=== PATIENT | female | born 1990 | race Hispanic/Latino ===

== ENCOUNTER → 2017-08-13 | Outpatient (CLI) | payer BC ==
[~2017-08-13] MED LIST: IOPAMIDOL 370 MG/ML 200 ML INFUS..BTL INJ ONE; SODIUM CHLORIDE 0.9% 250ML 0 ML ONE; SODIUM CHLORIDE 0.9% 250ML 250 ML ONE; SODIUM CHLORIDE 0.9% 50ML 50 ML ONE
--- NOTE | 2017-08-13 11:05 | Diagnostic Imaging Report ---
PROCEDURE: CT ABDOMEN \T\ PELVIS W/WO CONTRAST TECHNIQUE: The abdomen and pelvis were scanned utilizing a multidetector helical scanner from the diaphragm to the lesser trochanter before and after the IV administration of 150 cc of Isovue 370. Imaging was performed in the prone position per CT urogram protocol. Coronal and sagittal multiplanar reformations were obtained. COMPARISON: None. INDICATIONS: HEMATURIA FINDINGS: LOWER THORAX: Normal. HEPATOBILIARY: No focal hepatic lesions. No biliary ductal dilatation. SPLEEN: No splenomegaly. PANCREAS: No focal masses or ductal dilatation. ADRENALS: No adrenal nodules. KIDNEYS/URETERS: The 2-3 mm nonobstructing calculus in the interpolar left kidney seen on series 3 image 70. Punctate nonobstructing left lower pole renal calculus seen on series 3 image 89. No hydronephrosis. No additional renal, ureteral, or bladder calculi. No renal mass lesion or hydronephrosis. Excretory phase images show no filling defects within the upper collecting systems, ureters, or urinary bladder. The distal 4-5 cm of left ureter are not opacified with contrast, which likely relates to peristalsis. PELVIC ORGANS/BLADDER: The urinary bladder is unremarkable. The uterus is anteflexed and appears normal. Small left ovarian cyst versus dominant follicle. No right adnexal mass. PERITONEUM / RETROPERITONEUM: No free air or fluid. LYMPH NODES: No pelvic sidewall, retroperitoneal, or mesenteric lymphadenopathy. VESSELS: The abdominal aorta, major branch vessels, and iliac arterial systems are well-visualized and patent. Portal vein, splenic vein, and central superior mesenteric vein are patent. GI TRACT: The large bowel shows no evidence of distention or wall thickening. The rectum is collapsed likely reflective of peristalsis. The appendix is normal. No small bowel dilatation to suggest obstruction. BONES AND SOFT TISSUES: No focal soft tissue abnormalities. No osseous destructive lesions. IMPRESSION: Nonobstructing left renal calculi. Otherwise unremarkable CT urogram. Dictated by: Yaya Muller M.D. on 08/13/2017 at 11:05 Electronically approved by: Yaya Muller M.D. on 08/13/2017 at 11:05
== END ==
LOC: CT 08-06 17:40
PROVIDERS: ATTEND Urology
DX: N20.0 Calculus of kidney (principal); R31.9 Hematuria, unspecified
CPT/HCPCS: 74178; 81025 ×2; J7050; Q9967

== ENCOUNTER → 2017-08-29 | Outpatient (CLI) | payer BC ==
--- NOTE | 2017-08-29 22:51 | Diagnostic Imaging Report ---
EXAM: ABDOMEN-1VIEW (KUB), history of renal calculi INDICATION: CT of the abdomen and pelvis with and without IV contrast August 13, 2017 COMPARISON: CT urogram August 13, 2017 FINDINGS: LINES/TUBES: None BOWEL PATTERN: No evidence for obstruction. SOFT TISSUES: The renal shadows are largely obscured by bowel content and air. No calcifications are seen over the renal shadows and expected course of the ureters or bladder. LUNG BASES: Not included BONES: No acute findings. IMPRESSION: The renal stones seen in the left kidney on prior CT are not visualized on this KUB. The renal shadows are largely obscured by bowel. Signed by: Dr. Stefanie Stephen M.D. on 08/29/2017 10:47 PM
== END ==
LOC: RAD 17:28
PROVIDERS: ATTEND Urology
DX: N20.0 Calculus of kidney (principal)
CPT/HCPCS: 74018; 81025

== ENCOUNTER → 2017-10-15 | Day surgery (SDC) | payer BC ==
[2017-10-14 15:46] LABS: BASOPHILS % 0.3 % (0.0-1.0); EOSINOPHILS # (AUTO) 0.2 (0.0-0.4); EOSINOPHILS % 1.6 % (0.0-6.0); HEMATOCRIT 40.3 % (34.2-44.1); LYMPHOCYTES # (AUTO) 2.5 (1.0-3.2); LYMPHOCYTES % 25.7 % (18.0-39.1); MEAN CORPUSCULAR HEMOGLOBIN 32.3 pg (28-32); MEAN CORPUSCULAR HGB CONC 34.7 g/dL (31-35); MEAN CORPUSCULAR VOLUME 92.9 fL (81-99); MONOCYTES # (AUTO) 0.5 (0.2-0.8); MONOCYTES % 5.5 % (4.4-11.3); NEUTROPHILS # (AUTO) 6.6 (2.1-6.9); NEUTROPHILS % 66.5 % (38.7-80.0); PLATELET COUNT 314 x10e3/uL (140-360); RED BLOOD COUNT 4.34 x10e6/uL (3.6-5.1); RED CELL DISTRIBUTION WIDTH 12.1 % (11.7-14.4)
[2017-10-14 16:06] LABS: ANION GAP 13.1 mmol/L (8-16); BLOOD UREA NITROGEN 11 mg/dL (7-26); BUN/CREATININE RATIO 15 (6-25); CALCIUM 9.5 mg/dL (8.4-10.2); CARBON DIOXIDE 25 mmol/L (22-29); CHLORIDE 104 mmol/L (98-107); CREATININE, SERUM 0.74 mg/dL (0.57-1.11); EST GLOMERULAR FILTRATION RATE > 60 ML/MIN (60-); GLUCOSE 101 mg/dL (74-118); POTASSIUM 4.1 mmol/L (3.5-5.1); SODIUM 138 mmol/L (136-145)
[~2017-10-15] MED LIST changes: +CEFTRIAXONE SOD 1 GM VIAL ONE; +DEXAMETHASONE SOD PHOS INJ 4 MG/ML VIAL ONE; +FENTANYL CITRATE/PF 100MCG/2 ML INJ ONE; -IOPAMIDOL 370 MG/ML 200 ML INFUS..BTL INJ ONE; +IOPAMIDOL 610MG/1ML 300 MG/ML VIAL IV ONE; +LIDOCAINE HCL 2% LOCAL INJ 5 ML SDV VIAL INJ ONE; +MIDAZOLAM HCL 2 MG/2 ML VIAL ONE; +ONDANSETRON HCL INJ 2 MG/ML VIAL ONE; +PROPOFOL IV EMULSION 10 MG/ML 20 ML VIAL ONE; +SEVOFLURANE INHAL SOLN 250 ML PEN BTL ONE; -SODIUM CHLORIDE 0.9% 250ML 0 ML ONE; -SODIUM CHLORIDE 0.9% 250ML 250 ML ONE; -SODIUM CHLORIDE 0.9% 50ML 50 ML ONE
--- OUTSIDE RECORDS SUMMARY | 2017-10-15 06:46 | XMS REPORT ---
Author Author [facility] Address Unknown Phone Unavailable Care Team Providers Care [employer] Name Role Phone JAYLON GUTHRIE Unavailable Unavailable Problems This patient has no known problems. Allergies, Adverse Reactions, Alerts This patient has no known allergies or adverse reactions. Medications This patient has no known medications. Results Test Description Test Time Test Comments Text Results Atomic Results Result Comments ABDOMEN-1VIEW (KUB) [place] [address] Patient Name: REMY TURNER MR #: [id number] : 1990 Age/Sex: 26/F Req #: [id number] Adm Physician: Ordered by: JAYLON GUTHRIE MD Report #: [id number] Location: [facility] Room/Bed: Procedure: [id number] DX/ABDOMEN-1VIEW (KUB) Exam Date: 08/29/17 Exam Time: 1830 REPORT STATUS: Signed EXAM: ABDOMEN- 1VIEW (KUB), history of renal calculi INDICATION: CT of the abdomen and pelvis with and without IV contrast August 13, 2017 COMPARISON: CT urogram August 13, 2017 FINDINGS: LINES/TUBES: None BOWEL PATTERN : No evidence for obstruction. SOFT TISSUES: The renal shadows are largely obscured by bowel content and air. No calcifications are seen over the renal shadows and expected course of the ureters or bladder. LUNG BASES: Not included BONES: No acute findings. IMPRESSION: The renal stones seen in the left kidney on prior CT are not visualized on this KUB. The renal shadows are largely obscured by bowel. Signed by: Dr. Jhonathan tSephen M.D. on 08/29/2017 10:47 PM Dictated By: JHONATHAN STEPHEN MD 46 Transcribed By: JESSICA on 08/29/172246 COPY TO: JAYLON GUTHRIE MD CT ABDOMEN/PELVIS WOW [place] [address] Patient Name: REMY TURNER MR #: [id number] : 1990 Age/Sex: 26/F Req #: [id number] Adm Physician: Ordered by: JAYLON GUTHRIE MD Report #: [id number] Location: CT Room/Bed: Procedure: [id number] CT/CT ABDOMEN/PELVIS WOW Exam Date: 08/13/17 Exam Time: 0935 REPORT STATUS: Signed PROCEDURE: CT ABDOMEN T PELVIS W/WO CONTRAST TECHNIQUE: The abdomen and pelvis were scanned utilizing a multidetector helical scanner from the diaphragm to the lesser trochanter before and after the IV administration of 150 cc of Isovue 370. Imaging was performed in the prone position per CT urogram protocol. Coronal and sagittal multiplanar reformations were obtained. COMPARISON: None. INDICATIONS: HEMATURIA FINDINGS: LOWER THORAX : Normal. HEPATOBILIARY: No focal hepatic lesions. No biliary ductal dilatation. SPLEEN: No splenomegaly. PANCREAS: No focal masses or ductal dilatation. ADRENALS: No adrenal nodules. KIDNEYS/URETERS: The 2-3 mm nonobstructing calculus in the interpolar left kidney seen on series 3 image 70. Punctate nonobstructing left lower pole renal calculus seen on series 3 image 89. No hydronephrosis. No additional renal, ureteral, or bladder calculi. No renal mass lesion or hydronephrosis. Excretory phase images show no filling defects within the upper collecting systems, ureters, or urinary bladder. The distal 4-5 cm of left ureter are not opacified with contrast, which likely relates to peristalsis. PELVIC ORGANS/BLADDER: The urinary bladder is unremarkable. The uterus is anteflexed and appears normal. Small left ovarian cyst versus dominant follicle. No right adnexal mass. PERITONEUM / RETROPERITONEUM: No free air or fluid. LYMPH NODES: No pelvic sidewall, retroperitoneal, or mesenteric lymphadenopathy. VESSELS: The abdominal aorta, major branch vessels, and iliac arterial systems are well- visualized and patent. Portal vein, splenic vein, and central superior mesenteric vein are patent. GI TRACT: The large bowel shows no evidence of distention or wall thickening. The rectum is collapsed likely reflective of peristalsis. The appendix is normal. No small bowel dilatation to suggest obstruction. BONES AND SOFT TISSUES: No focal soft tissue abnormalities. No osseous destructive lesions. IMPRESSION: Nonobstructing left renal calculi. Otherwise unremarkable CT urogram. Dictated by: Maria Isabel Mcclure M.D. on 08/13/2017 at 11:05 Electronically approved by: Maria Isabel Mcclure M.D. on 08/13/2017 at 11:05 Dictated By : MARIA ISABEL MCCLURE MD [id number] Transcribed By: HANANE on 08/13/17 1105 COPY TO: JAYLON GUTHRIE MD
--- NOTE | 2017-10-15 07:36 | Diagnostic Imaging Report ---
PROCEDURE:X-RAY ABDOMEN - KUB COMPARISON:KUB 08/29/2017. INDICATIONS:PREOPERATIVE FOR RENAL STONE SURGERY FINDINGS: There is a non-obstructed bowel-gas pattern. 1.5 mm calculus projects over the interpolar region of the left kidney. There are no calcifications projected over the right renal shadow, expected course of the ureters or bladder. There are no acute osseous abnormalities. The lung bases are clear. CONCLUSION: Left nephrolithiasis. Dictated by: Florencio Whitt M.D. on 10/15/2017 at 7:37 Electronically approved by: Florencio Whitt M.D. on 10/15/2017 at 7:37
--- NOTE | 2017-11-04 00:13 | Operative Report ---
DATE OF PROCEDURE: October 15, 2017 PREOPERATIVE DIAGNOSES: 1. Left nephrolithiasis. 2. Gross hematuria. 3. Urinary tract infections. POSTOPERATIVE DIAGNOSES: 1. Left nephrolithiasis. 2. Gross hematuria. 3. Urinary tract infections. 4. Grade 1 to 2 cystocele. 5. Urethral hypermobility. 6. Yeast vaginitis. OPERATIONS PERFORMED: Note these were all staged procedures as part of a multistage, multistep process of managing the patient's urolithiasis. 1. Left-sided extracorporeal shock wave lithotripsy (separate procedure performed for the nephrolithiasis). 2. Cystourethroscopy with bilateral ureteral catheterization and retrograde ureteropyelography (separate procedure performed for the hematuria and urinary tract infections). 3. Interpretation of retrograde ureteropyelography. 4. Supervision of fluoroscopy, no radiologist present. 5. Pelvic examination under anesthesia. ANESTHESIA: General. COMPLICATIONS: None. CLINICAL SUMMARY: Aaliyah Iyer is 26-year-old woman with nephrolithiasis. She wants management of her stones. She has also had hematuria and urinary tract infections. She is brought for the above procedures. She is aware of the risks of bleeding, infection, injury to adjacent structures, need for additional procedures, and elected to proceed. OPERATIVE PROCEDURE IN DETAIL: Informed consent was verified. Aaliyah Iyer was properly identified, taken to the operating room and placed on lithotripsy table in supine position. Anesthesia was uneventfully begun. We could not visualize the patient's stones well without contrast. Therefore, the patient was carefully and gently repositioned in dorsal lithotomy position with all pressure points well padded. Her genitalia were prepared and draped in usual sterile fashion. The 22.5-[place] cystoscope sheath with the obturator in place was atraumatically inserted into the patient's urethra and bladder was drained. Panendoscopy of the urinary bladder revealed no suspicious mucosal lesions, no tumors, no stones, and no diverticula. Normally positioned and configured ureteral orifices were identified. There were mild trabeculations noted. A ureteral catheter was used to cannulate each ureter, and retrograde ureteral pyelograms were performed. We left the ureteral catheter in place on left hand side. We localized the patient's 2 stones in the left lower medial kae and in upper left lateral kae, and we used a total of 3000 shocks to both these calices and we identified the filling defects that corresponded to stones noted on CT. Following the procedure, the ureteral catheter was removed. The patient's bladder was drained. Pelvic examination under anesthesia revealed grade 1 to 2 cystocele with urethral hypomobility and discharge consistent with candidal vaginitis. The patient was then uneventfully reversed from anesthesia and taken to recovery room in stable condition. Interpretation of retrograde ureteropyelography: Contrast was instilled in retrograde fashion bilaterally. The right side was unremarkable. There were no tumors, no stones, and no diverticula. Unobstructed drainage was observed fluoroscopically. Left hand side exhibited filling defects that corresponded to the calcifications noted on CT. Unobstructed drainage was observed. There was no hydronephrosis and no stent was left in place. There were no complications to the procedure. She tolerated the procedure well. Estimated blood loss was minimal. Explicit postoperative instructions were given. Will follow the patient up in the office. Job#: [id number]
== END | disposition home or self-care (01) ==
LOC: OR 06:43
PROVIDERS: ATTEND Urology
DX: N20.0 Calculus of kidney (principal); N39.0 Urinary tract infection, site not specified; B37.3 Candidiasis of vulva and vagina; N81.10 Cystocele, unspecified; N36.41 Hypermobility of urethra; N32.89 Other specified disorders of bladder; Z01.812 Encounter for preprocedural laboratory examination; Z88.8 Allergy status to other drugs, medicaments and biological substances
CPT/HCPCS: 36415; 50590; 74018; 80048; 81025; 83970; 84550; 85025; J0696; J1100; J2001; J2250; J2405; Q9967